=== PATIENT | female | born 1995 | race Caucasian/White ===

== ENCOUNTER 2016-10-22 10:58 | Inpatient (IN) | payer OTHER ==
[~2016-10-22] VITALS: Ht 149.9 cm; Wt 44.2 kg
[2016-10-22] MEDS ORDERED: IBUP-1547 PO (11:11)
[2016-10-22] MEDS ORDERED: [UNRECOGNIZED DRUG - OTHER] PO (11:11)
[2016-10-22] MEDS ORDERED: ADENOSINE 3 MG/ML 2 ML VIAL IVP ONE (11:20)
[2016-10-22] MEDS ORDERED: LORazepam 1 MG TABLET PO ONE (11:45)
[2016-10-22] MEDS ORDERED: SODIUM CHLORIDE 0.9% 1,000 ML IV ONE ×2 (11:45→15:00)
[2016-10-22 11:46] LABS: BASOPHILS % (AUTO) 0.2 % (0.0-2.0); EOSINOPHILS % (AUTO) 1.4 % (1.0-6.0); HEMATOCRIT 44.3 % (36-46); HEMOGLOBIN 14.7 g/dL (12.0-16.0); LYMPHOCYTES # (AUTO) 0.8 K/uL (1.0-4.8); LYMPHOCYTES % (AUTO) 10.3 % (22.0-44.0); MEAN CORPUSCULAR HEMOGLOBIN 29.9 pg (26.0-34.0); MEAN CORPUSCULAR HGB CONC 33.2 G/dL (31.0-37.0); MEAN CORPUSCULAR VOLUME 90 fL (80-100); MONOCYTES # (AUTO) 0.7 K/uL (0.1-1.0); MONOCYTES % (AUTO) 8.8 % (2.0-9.0); NEUTROPHILS # (AUTO) 6.2 K/uL (1.8-7.7); NEUTROPHILS % (AUTO) 79.3 % (40.0-70.0); PLATELET COUNT (AUTO) 180 K/uL (150-450); RED BLOOD CELL COUNT(AUTO) 4.91 MIL/uL (4.00-5.20); RED CELL DISTRIBUTION WIDTH 12.7 % (11.5-14.5); WHITE BLOOD COUNT (AUTO) 7.8 K/uL (4.5-11.0)
[2016-10-22 11:57] LABS: ANION GAP 12 mmol/L (8-16); CARBON DIOXIDE 25 mmol/L (22-29); CHLORIDE 99 mmol/L (98-107); CREATININE 0.69 mg/dL (0.60-1.30); GLOMERULAR FILTR. RATE CALC > 60 mL/min (>60); POTASSIUM 3.1 mmol/L (3.5-5.1); SODIUM SERUM 136 mmol/L (136-145); UREA NITROGEN, BLOOD 6 mg/dL (7-18)
[2016-10-22 12:06] LABS: ALANINE AMINOTRANSFERASE 22 U/L (12-78); ALBUMIN 4.6 g/dL (3.4-5.0); ASPARTATE AMINOTRANSFERASE 16 U/L (15-37); BILIRUBIN,TOTAL 0.6 mg/dL (0.1-1.0); CREATINE KINASE, TOTAL 69 U/L (26-192); TOTAL PROTEIN, SERUM 8.2 g/dL (6.4-8.2)
[2016-10-22] MEDS ORDERED: PROMETHAZINE HCL 25 MG/ML VIAL IM ONE (12:30)
[2016-10-22 12:55] LABS: APPEARANCE,URINE CLEAR (CLEAR); GLUCOSE, URINE (UA) NEGATIVE (NEGATIVE); KETONES,URINE NEGATIVE (NEGATIVE); LEUKOCYTE ESTERASE ,URINE NEGATIVE (NEGATIVE); OCCULT BLOOD,URINE NEGATIVE (NEGATIVE); PROTEIN,URINE NEGATIVE (NEGATIVE)
[2016-10-22 12:56] LABS: ADD UA MICROSCOPIC NO
[2016-10-22] MEDS ORDERED: METOPROLOL TARTRATE 50 MG TABLET PO ONE (14:15)
[2016-10-22] MEDS ORDERED: SODIUM CHLORIDE 0.9% 100 ML ONE (17:20)
[2016-10-22] MEDS ORDERED: IOVERSOL 320 MG/ML 100 ML VIAL ONE (17:20)
[2016-10-22] MEDS ORDERED: POTASSIUM CHLORIDE 20 MEQ ER TABLET PO ONE (18:00)
[2016-10-22 19:07] LABS: THYROID STIMULATING HORMONE 1.02 uIU/mL (0.36-3.74)
[2016-10-22 19:25] LABS: INFLUENZA TYPE B NEGATIVE FOR TYPE B (NEGATIVE)
[2016-10-22] MEDS ORDERED: ACETAMINOPHEN 500 MG TABLET PO ONE (19:45)
[2016-10-22] MEDS ORDERED: OSELTAMIVIR PHOSPHATE 75 MG CAPSULE PO ONE (19:45)
[2016-10-22] MEDS ORDERED: ACETAMINOPHEN 325 MG TABLET PO PRN (20:45)
[2016-10-22] MEDS ORDERED: ONDANSETRON HCL 4 MG/2 ML VIAL IVP PRN (20:45)
[2016-10-22] MEDS ORDERED: OxyCODONE HCL/ACETAMINOPHEN 5-325 MG TABLET PO PRN (20:45)
[2016-10-22] MEDS ORDERED: ZOLPIDEM TARTRATE 10 MG TABLET PO PRN (20:45)
[2016-10-22 21:04] VITALS: BP 124/76
[2016-10-22] MEDS ORDERED: INFLUENZA VIRUS VACCINE QVS 2016-17 (3YR+)/PF 60 MCG/0.5 ML SYRINGE IM ONE (21:30)
[2016-10-22 23:53] VITALS: BP 118/67
[2016-10-23] MEDS: HEPARIN SODIUM,PORCINE 5,000 UNITS/ML VIAL SQ SCH ×4 (00:40→22:31)
[2016-10-23 05:56] VITALS: BP 115/63
[2016-10-23 07:36] VITALS: BP 116/74
[2016-10-23] MEDS: PANTOPRAZOLE SODIUM 40 MG DR TABLET PO SCH (08:45)
[2016-10-23 10:51] VITALS: BP 97/59
[2016-10-23] MEDS ORDERED: LORazepam 1 MG TABLET PO PRN (14:15)
[2016-10-23] MEDS: SODIUM CHLORIDE 0.9% 1,000 ML IV SCH (14:34)
[2016-10-23] MEDS: OSELTAMIVIR PHOSPHATE 75 MG CAPSULE PO SCH ×2 (15:24→19:58)
[2016-10-23 15:51] VITALS: BP 102/75
[2016-10-23 19:51] VITALS: BP 133/83
[2016-10-23] MEDS ORDERED: LEVOFLOXACIN 750 MG/D5% WATER 150 ML IV SCH (20:00)
[2016-10-24 00:28] VITALS: BP 122/76
[2016-10-24] MEDS: SODIUM CHLORIDE 0.9% 1,000 ML IV SCH ×2 (00:53→10:28)
[2016-10-24 04:44] VITALS: BP 106/70
[2016-10-24] MEDS: HEPARIN SODIUM,PORCINE 5,000 UNITS/ML VIAL SQ SCH ×2 (08:00→15:25)
[2016-10-24 08:05] VITALS: BP 119/66
[2016-10-24] MEDS: OSELTAMIVIR PHOSPHATE 75 MG CAPSULE PO SCH (08:11)
[2016-10-24] MEDS: PANTOPRAZOLE SODIUM 40 MG DR TABLET PO SCH (08:12)
[2016-10-24 11:03] VITALS: BP 125/88
[2016-10-24] MEDS ORDERED: CIP250 PO (11:47)
[2016-10-24] MEDS ORDERED: ACET-2247 PO (11:47)
[2016-10-24] MEDS ORDERED: OSEL75 PO (11:47)
[2016-10-24 16:14] VITALS: BP 109/81
== END 2016-10-24 16:30 | disposition home or self-care (01) | DRG 113 ==
LOC: EMS 11:00 → 5N 19:43
PROVIDERS: ADMIT Hospitalist; ATTEND Hospitalist
DX: J10.1 Influenza due to other identified influenza virus with other respiratory manifestations (principal); Q25.72 Congenital pulmonary arteriovenous malformation; R00.0 Tachycardia, unspecified; F41.9 Anxiety disorder, unspecified; M24.419 Recurrent dislocation, unspecified shoulder; Z28.21 Immunization not carried out because of patient refusal; Z88.8 Allergy status to other drugs, medicaments and biological substances; Z79.899 Other long term (current) drug therapy; Z82.5 Family history of asthma and other chronic lower respiratory diseases; Z82.49 Family history of ischemic heart disease and other diseases of the circulatory system
CPT/HCPCS: 71275; 83605; 84443; 85379; 87804; 93005; 96360; 96361; 96372; 99285; J0153; J1644; J1956; J2550; J7030; J7050

== ENCOUNTER 2017-10-16 16:49 | Emergency (ER) | payer OTHER ==
[~2017-10-16] VITALS: Ht 149.9 cm; Wt 45.5 kg
[~2017-10-16 16:49] MED LIST: ACET-2247 PO; CIP250 PO; OSEL75 PO
[2017-10-16 17:05] VITALS: BP 142/92
== END 2017-10-16 18:16 | disposition home or self-care (01) ==
LOC: EMS 16:50
DX: S43.014A Anterior dislocation of right humerus, initial encounter (principal); Z88.8 Allergy status to other drugs, medicaments and biological substances; X58.XXXA Exposure to other specified factors, initial encounter; Y93.72 Activity, wrestling; Y92.89 Other specified places as the place of occurrence of the external cause; Y99.8 Other external cause status
CPT/HCPCS: 23650; 29240; 99284